=== PATIENT | male | born 1940 | race Caucasian/White ===

== ENCOUNTER 2017-08-08 05:32 | Day surgery (SDC) | payer OTHER, BC ==
[~2017-08-08] VITALS: Ht 188 cm; Wt 99.7 kg
[~2017-08-08 05:32] MED LIST: AMLODIPINE BESYL5 MG PO; ASPIR 8181 M1 PO; ATIVAN0.5 MG PO; ELIQUIS5 MG PO; FISH OIL CONCE1 EAC1 PO; FOLIC ACID1 MG PO; GABAPENTIN300 MG PO; HYZAAR 100-21 TABLET PO; KRILL OIL 1,001 EACH PO; LEVOTHYROXINE100 MCG PO; LIPITOR40 MG PO; LOPRESSOR100 M1 PO; LOPRESSOR25 MG PO; LOPRESSOR50 MG PO; LOSARTAN POTASS25 MG PO; LOSARTAN-HCTZ1 EAC1 PO; LYRICA50 MG PO; MAGNESIUM250 MG PO; METFORMIN HCL500 M4 PO; METOPROLOL TART25 MG PO; METOPROLOL TART50 MG PO; MIRALAX17 GM PO; NEURONTIN100 MG PO; NORVASC10 MG PO; NORVASC5 MG PO; OMEPRAZOLE20 M2 PO; OMEPRAZOLE20 MG PO; PRAVASTATIN SOD40 MG PO; PRILOSEC20 MG PO; SOTALOL80 MG PO; VITAMIN B-1100 MG PO; VITAMIN D-32000 UNI2 PO; VITAMIN D31000 UNIT PO; ZANTAC150 MG PO
[2017-08-08 06:11] VITALS: BP 141/69
[2017-08-08] MEDS ORDERED: OXYCODONE HCL5 MG PO (10:08)
[2017-08-08 11:00] VITALS: BP 116/56
[2017-08-08 11:47] VITALS: BP 120/60
== END 2017-08-08 11:31 | disposition home or self-care (01) ==
LOC: SDC 05:32
PROVIDERS: Surgery
PROC: 0YU50JZ Supplement Right Inguinal Region with Synthetic Substitute, Open Approach (ICD-10-PCS; principal; 2017-08-08)
DX: K40.90 Unilateral inguinal hernia, without obstruction or gangrene, not specified as recurrent (principal); I12.9 Hypertensive chronic kidney disease with stage 1 through stage 4 chronic kidney disease, or unspecified chronic kidney disease; N18.3 Chronic kidney disease, stage 3 (moderate); E78.00 Pure hypercholesterolemia, unspecified; Z79.01 Long term (current) use of anticoagulants; Z87.891 Personal history of nicotine dependence; Z88.0 Allergy status to penicillin
CPT/HCPCS: 82948; 88302; 88307; 93005; C1781; J0131; J1170; J2405; J3010; S0020; S0074